=== PATIENT | female | born 1940 | race Caucasian/White ===

== ENCOUNTER → 2017-11-25 | Outpatient (CLI) | payer MEDICARE ==
[~2017-11-25] MED LIST: ASPI-555 PO; METO25TA6 PO; NITR0.4T SL; ROSU5TAB18 PO
== END | disposition home or self-care (01) ==
LOC: SHCH 13:27
PROVIDERS: ATTEND Internal Medicine Cardiovascular Disease
DX: I25.10 Atherosclerotic heart disease of native coronary artery without angina pectoris (principal); I10 Essential (primary) hypertension
CPT/HCPCS: 93306

== ENCOUNTER → 2017-11-26 | Outpatient (CLI) | payer MEDICARE ==
[~2017-11-26] MED LIST changes: +REGADENOSON 0.4 MG/5 ML PF SYG IVP SCH
== END | disposition home or self-care (01) ==
LOC: SHCH 07:59
PROVIDERS: ATTEND Internal Medicine Cardiovascular Disease
DX: I25.10 Atherosclerotic heart disease of native coronary artery without angina pectoris (principal); I10 Essential (primary) hypertension
CPT/HCPCS: 78452; 93017; 96374; A9500 ×2; J2785

== ENCOUNTER → 2019-06-22 | Outpatient (CLI) | payer MEDICARE ==
[~2019-06-22] MED LIST changes: +CALC-724 PO; +GLUC-252 PO; +HYDR500C2 PO; +MAGNESIUM PO; -NITR0.4T SL; -REGADENOSON 0.4 MG/5 ML PF SYG IVP SCH; -ROSU5TAB18 PO; +coq-10 PO; +fish oil PO
== END | disposition home or self-care (01) ==
LOC: RAH 07:34
PROVIDERS: ATTEND Physical Medicine & Rehabilitation
DX: S83.241A Other tear of medial meniscus, current injury, right knee, initial encounter (principal); M94.261 Chondromalacia, right knee; M17.11 Unilateral primary osteoarthritis, right knee; X58.XXXA Exposure to other specified factors, initial encounter; Y93.89 Activity, other specified; Y92.89 Other specified places as the place of occurrence of the external cause; Y99.8 Other external cause status
CPT/HCPCS: 73721

== ENCOUNTER → 2019-12-23 | Outpatient (CLI) | payer MEDICARE | END | disposition home or self-care (01) | LOC: RAH 11:13 | PROVIDERS: ATTEND Physical Medicine & Rehabilitation | DX: M84.351A Stress fracture, right femur, initial encounter for fracture (principal); M17.11 Unilateral primary osteoarthritis, right knee; M25.462 Effusion, left knee; M79.89 Other specified soft tissue disorders; M85.88 Other specified disorders of bone density and structure, other site; M11.261 Other chondrocalcinosis, right knee; X58.XXXA Exposure to other specified factors, initial encounter; Y93.89 Activity, other specified; Y92.89 Other specified places as the place of occurrence of the external cause; Y99.8 Other external cause status | CPT/HCPCS: 73562 ==

== ENCOUNTER → 2020-08-15 | Outpatient (CLI) | payer MEDICARE ==
[~2020-08-15] MED LIST changes: -ASPI-555 PO; +ASPI-556 PO; +CALC-1158 PO; -CALC-724 PO
== END | disposition home or self-care (01) ==
LOC: RAH 11:01
PROVIDERS: ATTEND Physical Medicine & Rehabilitation
DX: M43.16 Spondylolisthesis, lumbar region (principal); M54.16 Radiculopathy, lumbar region
CPT/HCPCS: 72110

== ENCOUNTER → 2022-06-02 | Outpatient (CLI) | payer MEDICARE | END | disposition home or self-care (01) | LOC: SHCH 08:31 | PROVIDERS: ATTEND Internal Medicine Cardiovascular Disease | DX: I08.0 Rheumatic disorders of both mitral and aortic valves (principal); I25.3 Aneurysm of heart | CPT/HCPCS: 93306 ==

== ENCOUNTER 2022-08-25 06:50 | Day surgery (SDC) | payer MEDICARE ==
[2022-08-21 09:35] LABS: BASOPHILS % (AUTO) 1.5 % (0.0-5.0); EOSINOPHILS % (AUTO) 4.3 % (0.0-8.0); HEMATOCRIT 51.9 % (36-48); LYMPHOCYTES % (AUTO) 23.5 % (21.0-51.0); MEAN CORPUSCULAR HEMOGLOBIN 29.2 pg (27.0-33.0); MEAN CORPUSCULAR HGB CONC 32.2 g/dL (32.0-36.0); MEAN CORPUSCULAR VOLUME 90.9 fL (79-99); MONOCYTES % (AUTO) 7.8 % (3.0-13.0); NEUTROPHILS % (AUTO) 62.2 % (40.0-77.0); PLATELET COUNT (AUTO) 542 K/uL (130-400); RED BLOOD CELL COUNT(AUTO) 5.71 MIL/uL (4.00-5.50); RED CELL DISTRIBUTION WIDTH 14.3 % (11.0-15.5); WHITE BLOOD COUNT (AUTO) 8.6 K/uL (4.8-10.8)
[2022-08-21 09:45] LABS: APPEARANCE,URINE CLEAR (CLEAR); BILIRUBIN,URINE NEGATIVE (NEGATIVE); COLOR,URINE YELLOW (YELLOW); GLUCOSE, URINE (UA) NEGATIVE (NEGATIVE); KETONES,URINE NEGATIVE (NEGATIVE); LEUKOCYTE ESTERASE ,URINE 250 Leu/uL (NEGATIVE); NITRATE,URINE NEGATIVE (NEGATIVE); OCCULT BLOOD,URINE NEGATIVE (NEGATIVE); PH,URINE 5.5 (5.0-8.0); PROTEIN,URINE NEGATIVE (NEGATIVE); UROBILINOGEN,URINE 0.2 mg/dL (0.2-1.0)
[2022-08-21 09:46] LABS: CREATININE 0.8 mg/dL (0.5-1.5); POTASSIUM 4.3 mmol/L (3.5-5.1)
[2022-08-21 09:47] LABS: INR 1.04 (0.85-1.15); PROTHROMBIN TIME 11.3 SEC (9.6-11.6)
[2022-08-21 09:49] LABS: PARTIAL THROMBOPLASTIN TIME 29.1 SEC (26.3-35.5)
[2022-08-21 10:01] LABS: BACTERIA,URINE RARE /HPF (None Seen); MUCUS,URINE RARE LPF (None Seen); OTHER CASTS, URINE 1 /LPF (None Seen); SQUAMOUS EPITHELIAL CELL,UR RARE /HPF (0-2)
[2022-08-21 10:02] LABS: B-TYPE NATRIURETIC PEPTIDE 78 pg/mL (0-100)
[2022-08-22 10:46] VITALS: BP 143/84
[2022-08-25] VITALS (11 sets, daily range): BP systolic 124–153; BP diastolic 74–93
[~2022-08-25 06:50] MED LIST changes: +0.9%NACL 1000ML 1,000 ML IV SCH; +ALEN70TA80 PO; -CALC-1158 PO; +CHOL2000 PO; +EZET10TA48 PO; -GLUC-252 PO; -MAGNESIUM PO; +NITR0.4T50 SL; +PREVAGEN PO; +ROSU5TAB12 PO; +SUPER B COMPLEX PO; -coq-10 PO; -fish oil PO
[2022-08-25] MEDS ORDERED: HEPARIN 10,000 UNIT/10ML (1,000 UNIT/ML) VIAL ONE (08:16)
[2022-08-25] MEDS ORDERED: LIDOCAINE HCL 1% 20 ML VIAL ONE (08:16)
[2022-08-25] MEDS ORDERED: SODIUM BICARB 50MEQ 50ML VIAL 50 ML ONE (08:16)
[2022-08-25] MEDS ORDERED: MEPERIDINE-PF 25 MG/ML SYG ONE ×2 (08:17→08:47)
[2022-08-25] MEDS ORDERED: MIDAZOLAM HCL 1 MG/ML 2ML VIAL ONE ×2 (08:17→08:47)
[2022-08-25] MEDS ORDERED: IOHEXOL-350 50ML VIAL IV ONE (08:17)
[2022-08-25] MEDS ORDERED: IOHEXOL 350 MG/ML 100ML INFUS..BTL IV ONE (08:17)
[2022-08-25] MEDS ORDERED: NITROGLYCERIN 50MG VIAL ONE (08:21)
[2022-08-25] MEDS ORDERED: ASPIRIN 325MG EC TAB PO ONE (09:44)
[2022-08-25] MEDS ORDERED: CLOPIDOGREL 300MG TAB ONE (09:44)
[2022-08-25] MEDS ORDERED: 0.9%NACL 1000ML 1,000 ML IV SCH (10:00)
== END 2022-08-25 15:30 | disposition home or self-care (01) ==
LOC: DAH 06:50
PROVIDERS: ATTEND Internal Medicine Cardiovascular Disease
DX: I25.119 Atherosclerotic heart disease of native coronary artery with unspecified angina pectoris (principal); I25.719 Atherosclerosis of autologous vein coronary artery bypass graft(s) with unspecified angina pectoris; I25.82 Chronic total occlusion of coronary artery; I50.42 Chronic combined systolic (congestive) and diastolic (congestive) heart failure; Z79.01 Long term (current) use of anticoagulants; Z79.899 Other long term (current) drug therapy; Z79.82 Long term (current) use of aspirin; Z98.890 Other specified postprocedural states
CPT/HCPCS: 80048; 83880; 85025; 85610; 85730; 87088; 81001; 36415; 71045; 93005; 93459; C9600; C1769 ×3; C1887; C1894; C1760; C1874; J7030; J3490 ×2; J1644 ×2; J2250 ×2; J2175 ×2; Q9967; A4215; A4222; A4221; A4663; A4216; A4606; Q9965 ×2; A4223 ×3; 96360; 96361; 99156; 99157

== ENCOUNTER 2022-10-22 14:58 | Emergency (ER) | payer MEDICARE ==
[~2022-10-22] VITALS: Ht 162.6 cm; Wt 63.5 kg
[~2022-10-22 14:58] MED LIST changes: -0.9%NACL 1000ML 1,000 ML IV SCH
[2022-10-22 15:11] VITALS: BP 150/96
[2022-10-22] MEDS ORDERED: ACETAMINOPHEN 500 MG TABLET PO ONE (17:00)
[2022-10-22] MEDS ORDERED: IBUP-2070 PO (17:52)
== END 2022-10-22 18:10 | disposition home or self-care (01) ==
LOC: EDH 14:58
DX: M71.22 Synovial cyst of popliteal space [Baker], left knee (principal); Z90.49 Acquired absence of other specified parts of digestive tract; Z90.710 Acquired absence of both cervix and uterus; Z95.1 Presence of aortocoronary bypass graft; Z79.82 Long term (current) use of aspirin; Z79.899 Other long term (current) drug therapy; Z88.5 Allergy status to narcotic agent
CPT/HCPCS: 73562; 93971

== ENCOUNTER → 2023-02-02 | Outpatient (CLI) | payer MEDICARE ==
[~2023-02-02] MED LIST changes: +IBUP-2070 PO
[2023-02-02 12:40] LABS: INR 0.97 (0.85-1.15); PROTHROMBIN TIME 10.6 SEC (9.6-11.6)
[2023-02-02 12:42] LABS: PARTIAL THROMBOPLASTIN TIME 28.7 SEC (26.3-35.5)
[2023-02-02 12:48] LABS: BASOPHILS % (AUTO) 1.3 % (0.0-5.0); EOSINOPHILS % (AUTO) 2.8 % (0.0-8.0); HEMATOCRIT 44.6 % (36-48); LYMPHOCYTES % (AUTO) 23.6 % (21.0-51.0); MEAN CORPUSCULAR HEMOGLOBIN 34.9 pg (27.0-33.0); MEAN CORPUSCULAR VOLUME 105.9 fL (79-99); MONOCYTES % (AUTO) 7.4 % (3.0-13.0); NEUTROPHILS % (AUTO) 64.4 % (40.0-77.0); PLATELET COUNT (AUTO) 410 K/uL (130-400); RED BLOOD CELL COUNT(AUTO) 4.21 MIL/uL (4.00-5.50); RED CELL DISTRIBUTION WIDTH 12.7 % (11.0-15.5); WHITE BLOOD COUNT (AUTO) 6.1 K/uL (4.8-10.8)
[2023-02-02 12:59] LABS: HEMOGLOBIN A1C 5.7 % (4.0-6.0)
[2023-02-02 13:14] LABS: CREATININE 0.8 mg/dL (0.5-1.5); MAGNESIUM 1.8 mg/dL (1.80-2.40); POTASSIUM 3.7 mmol/L (3.5-5.1); T4 (THYROXINE) 8.8 ug/dL (4.7-13.3); THYROID STIMULATING HORMONE 1.75 uIU/mL (0.36-3.74); TOTAL PROTEIN, SERUM 7.6 g/dL (6.0-8.3)
== END | disposition home or self-care (01) ==
LOC: LAB 11:17
PROVIDERS: ATTEND Internal Medicine Cardiovascular Disease
DX: I25.10 Atherosclerotic heart disease of native coronary artery without angina pectoris (principal); E78.5 Hyperlipidemia, unspecified; Z79.899 Other long term (current) drug therapy; Z95.5 Presence of coronary angioplasty implant and graft; Z95.1 Presence of aortocoronary bypass graft; Z79.82 Long term (current) use of aspirin; Z86.2 Personal history of diseases of the blood and blood-forming organs and certain disorders involving the immune mechanism
CPT/HCPCS: 36415; 80053; 80061; 82607; 82652; 83036; 83735; 84436; 84443; 84479; 85025; 85610; 85730

== ENCOUNTER → 2023-06-02 | Outpatient (CLI) | payer MEDICARE ==
[2023-06-02 12:44] LABS: CHOLESTEROL 129 mg/dL (<200); HDL CHOLESTEROL 63 mg/dL (35-85); LDL DIRECT 50 mg/dL (0-99); TRIGLYCERIDES 61 mg/dL (30-200)
== END | disposition home or self-care (01) ==
LOC: LAB 08:21
PROVIDERS: ATTEND Internal Medicine Cardiovascular Disease
DX: E78.5 Hyperlipidemia, unspecified (principal)
CPT/HCPCS: 36415; 80061

== ENCOUNTER 2024-03-17 10:30 | Emergency (ER) | payer MEDICARE ==
[~2024-03-17] VITALS: Ht 162.6 cm; Wt 61.2 kg
[~2024-03-17 10:30] MED LIST changes: -ROSU5TAB12 PO; +ROSU5TAB43 PO
[2024-03-17 11:02] VITALS: BP 127/86; PULSE 92; RESP 18; O2SAT 97
[2024-03-17] MEDS: DEXAMETHASONE SOD PHOSPHATE 4 MG/ML 1ML VIAL IM ONE (12:01)
[2024-03-17] MEDS: ACETAMINOPHEN 500 MG TABLET PO ONE (12:01)
[2024-03-17] MEDS ORDERED: METH4TAB3 PO (12:41)
== END 2024-03-17 13:15 | disposition home or self-care (01) ==
LOC: EDH 10:30
DX: M17.12 Unilateral primary osteoarthritis, left knee (principal); Z79.82 Long term (current) use of aspirin; Z79.899 Other long term (current) drug therapy; Z98.890 Other specified postprocedural states; Z90.710 Acquired absence of both cervix and uterus; Z88.8 Allergy status to other drugs, medicaments and biological substances
CPT/HCPCS: 99283; 73562; 96372; J1100

== ENCOUNTER → 2024-10-10 | Outpatient (CLI) | payer MEDICARE ==
[~2024-10-10] MED LIST changes: +METH4TAB3 PO; -ROSU5TAB43 PO; +ROSU5TAB51 PO
[2024-10-10 12:46] LABS: CREATININE 0.9 mg/dL (0.5-1.0); POTASSIUM 4.7 mmol/L (3.5-5.1)
== END | disposition home or self-care (01) ==
LOC: LAB 11:04
PROVIDERS: ATTEND Internal Medicine Cardiovascular Disease
DX: I10 Essential (primary) hypertension (principal); E78.5 Hyperlipidemia, unspecified
CPT/HCPCS: 36415; 80048; 80061

== ENCOUNTER → 2024-10-21 | Outpatient (CLI) | payer MEDICARE ==
[~2024-10-21] MED LIST changes: +IOHEXOL 350 MG/ML 100ML INFUS..BTL IV ONE
--- NOTE | 2024-10-21 12:05 | HMCIMG ---
CT ABDOMEN/PELVIS W/CONTRAST REASON: ANEURYSM OF OTHER SPECIFIED ARTERIES COMPARISON: 05/03/2018 TECHNIQUE: Images are obtained from lung bases to symphysis pubis following IV contrast, 100 cc Omnipaque 350. FINDINGS: Lung bases are clear. There are no focal liver lesions. There are normal-appearing kidneys.. Spleen and pancreas appear unremarkable. There has been a previous cholecystectomy. Bowel loops appear unremarkable. This includes normal appearance of the appendix There is no evidence of free fluid or intraperitoneal air. There are no focal fluid collections. Aorta and retroperitoneum appear normal as do pelvic soft tissue structures. Aorta, common and external iliac arteries and common femoral arteries appear unremarkable, no evidence of aneurysm. The anterior abdominal wall is intact. Osseous structures appear unremarkable. IMPRESSION: 1. No acute finding in the abdomen or pelvis. 2. No evidence of aneurysm. CT was performed with one or more following dose reduction techniques: automated exposure control, adjustment of the mA and kv according to patient's size, or use of a iterative reconstruction technique.
== END | disposition home or self-care (01) ==
LOC: RAH 08:11
PROVIDERS: ATTEND Internal Medicine Cardiovascular Disease
DX: I72.8 Aneurysm of other specified arteries (principal); Z90.49 Acquired absence of other specified parts of digestive tract
CPT/HCPCS: 74177; Q9967

== ENCOUNTER 2025-06-15 15:53 | Emergency (ER) | payer MEDICARE ==
[~2025-06-15] VITALS: Ht 162.6 cm; Wt 61.7 kg
[~2025-06-15 15:53] MED LIST changes: -EZET10TA48 PO; +EZET10TA80 PO; +IBUP-1492 PO; -IBUP-2070 PO; -IOHEXOL 350 MG/ML 100ML INFUS..BTL IV ONE
--- NOTE | 2025-06-15 16:01 | ERN ---
ED Note History of Present Illness Stated Complaint: ABDOMINAL PAIN Chief Complaint: Abdominal Pain Time Seen by MD: 15:54 Dictation: PATIENT IS AN 84-YEAR-OLD FEMALE COMING IN WITH THE TODAY WITH COMPLAINTS OF ACUTE ONSET OF LEFT FLANK PAIN THAT RADIATES TO HER LEFT LOWER QUADRANT WITH NAUSEA VOMITING ONSET 4 HOURS PRIOR TO ARRIVAL. SHE STATES THE PAIN STARTED IN HER LEFT FLANK AND THEN RADIATED AROUND. NOW IT IS MORE TO THE LEFT LOWER QUADRANT. SHE DENIES FEVER CHILLS. NEGATIVE CVAT IN TRIAGE. DENIES ANY HISTORY OF UROLITHIASIS/DIVERTICULITIS UTI. Allergies: Coded Allergies: hydrocodone (Unverified Allergy, Unknown, 10/07/16) Home Meds Active Scripts Methylprednisolone (Medrol) 4 Mg Tab.ds.pk, 4 MG PO AD, #1 UNIT Prov:SIOBHAN WALSH ASSEMBLER BODY 03/17/24 Ibuprofen (Ibuprofen) 600 Mg Tablet, 600 MG PO Q6H PRN for PAIN, #40 TAB Prov:KAUSHIK MALCOLM V PRIMARY CARE PHYSICIAN 10/22/22 Reported Medications Nitroglycerin (Nitroglycerin) 0.4 Mg Tab.subl, 0.4 MG SL AD PRN for CHEST PAIN, TAB.SL 08/22/22 Alendronate Sodium (Alendronate Sodium) 70 Mg Tablet, 70 MG PO QWEEK, TAB 08/22/22 [Prevagen] No Conflict Check, 10 MG PO DAILY 08/22/22 [Super B Complex] No Conflict Check, 1 TAB PO DAILY 08/22/22 Cholecalciferol (Vitamin D3) (Vitamin D3) 50 Mcg Capsule, 50 MCG PO DAILY, CAP 08/22/22 Rosuvastatin Calcium (Rosuvastatin Calcium) 5 Mg Tablet, 5 MG PO DAILY, TAB 08/22/22 Ezetimibe (Ezetimibe) 10 Mg Tablet, 10 MG PO DAILY, TAB 08/22/22 Metoprolol Tartrate (Metoprolol Tartrate) 25 Mg Tablet, 0.5 MG PO DAILY, TAB 06/09/18 Hydroxyurea (Hydroxyurea) 500 Mg Capsule, 500 MG PO DAILY, CAP 06/09/18 Aspirin (Aspir 81) 81 Mg Tablet.dr, 81 MG PO DAILY, TAB 10/07/16 Past Medical History Past Medical History: Heart Disease, Hypertension Additional Past Medical Hx: HX OF LEFT LEG MELANOMA Surgical History: CABG Surgical History Other: L LEG MELANOMA REMOVAL History: Not Applicable RN Note Reviewed/Agreed w/PFSH: Yes Review of System Dictation CONSTITUTIONAL: NEGATIVE EXCEPT FOR HPI HEAD/FACE: NEGATIVE EXCEPT FOR HPI EENT: NEGATIVE EXCEPT FOR HPI RESPIRATORY: NEGATIVE EXCEPT FOR HPI GASTROINTESTINAL/ABDOMINAL: NEGATIVE EXCEPT FOR HPI LEFT FLANK PAIN THAT RADIATES TO LEFT LOWER QUADRANT WITH NAUSEA VOMITING GENITOURINARY: NEGATIVE EXCEPT FOR HPI MUSCULOSKELETAL: NEGATIVE EXCEPT FOR HPI INTEGUMENTARY: NEGATIVE EXCEPT FOR HPI NEUROLOGICAL/PSYCH: NEGATIVE EXCEPT FOR HPI HEMATOLOGIC/LYMPHATIC: NEGATIVE EXCEPT FOR HPI ALL SYSTEMS NEGATIVE, EXCEPT NOTED ABOVE. 13 POINT REVIEW OF SYSTEMS ASSESSED AND ALL NEGATIVE EXCEPT FOR ABOVE. Initial Vital Sign VS Vital Signs Date Time Temp Pulse Resp B/P (MAP) Pulse Ox O2 Delivery O2 Flow Rate FiO2 06/15/25 15:54 98.2 64 16 133/85 100 Room Air 0 06/15/25 15:57 21 Physical Exam Dictation VITAL SIGNS REVIEWED GENERAL APPEARANCE: ALERT, ORIENTED X 3, MODERATE ACUTE DISTRESS, WELL DEVELOPED, NOURISHED. HEAD AND FACE: NON-TRAUMATIC. EYES: PERRL, PINK CONJUNCTIVAS, EYELID NO TRAUMA, ANTERIOR CHAMBER WITH ARCUS SENILIS. EARS: PINNAS INTACT AND NO SIGNS OF TRAUMA OR ERYTHEMA EAR CANALS CLEAR AND NO DISCHARGE TM NO ERYTHEMA NOSE: NO DISCHARGE, NO BLEEDING. OROPHARYNX: MOUTH NORMAL, TONGUE PINK, PHARYNX CLEAR,NO ERYTHEMA, TONSILS NO EXUDATES, NO ABSCESSES NOTED, MUCOUS MEMBRANE MOIST NECK: SUPPLE, NON-TENDER, NO THYROMEGALY, NO MASSES, NO JVD, NO BRUITS BREAST:DEFERRED CHEST:NO TENDERNESS, NO CREPITUS, NO PARADOXICAL MOVEMENT, NO RETRACTIONS LUNGS:CLEAR, WELL-VENTILATED, SYMMETRIC, NO RALES, NO WHEEZING, NO RHONCHI, NO STRIDOR, GOOD BREATH SOUNDS BILATERALLY HEART: REGULAR RATE, REGULAR RHYTHM, NO MURMUR, NO GALLOPS VASCULAR: NO PERIPHERAL EDEMA, ABDOMEN: SOFT, POSITIVE BOWEL SOUNDS, NONDISTENDED, NO GUARDING, MILD LEFT LOWER QUADRANT TENDERNESS, NO REBOUND, NO MASSES NO HEPATOMEGALY, NO SPLENOMEGALY, NO KEE'S SIGN, NO HERNIAS. NEGATIVE CVAT RECTAL: DEFERRED GENITAL: DEFERRED NEUROLOGICAL: NORMAL SPEECH, MOTOR FUNCTION INTACT, SENSORY FUNCTION INTACT MUSCULOSKELETAL: NECK NONTENDER, FULL RANGE OF MOTION, BACK NONTENDER, FULL RANGE OF MOTION, EXTREMITIES: NONTENDER, FULL RANGE OF MOTION SKIN: COLOR PINK, DRY, NO TURGOR, NO RASH, NO LACERATIONS, NO ABRASIONS, NO CONTUSIONS. LYMPHATIC: DEFERRED Results (Laboratory/Radiology) Laboratory/Radiology Laboratory Tests Test 06/15/25 16:08 06/15/25 17:50 White Blood Count 9.5 K/uL (4.8-10.8) Red Blood Count 4.61 MIL/uL (4.00-5.50) Hemoglobin 15.0 g/dL (12.0-16.0) Hematocrit 46.0 % (36-48) Mean Corpuscular Volume 99.8 fL (79-99) H Mean Corpuscular Hemoglobin 32.5 pg (27.0-33.0) Mean Corpuscular Hemoglobin Concent 32.6 g/dL (32.0-36.0) Red Cell Distribution Width 14.8 % (11.0-15.5) Platelet Count 405 K/uL (130-400) H Mean Platelet Volume 10.2 fL (7.5-10.5) Immature Granulocyte % (Auto) 0.4 % (0-1) Neutrophils (%) (Auto) 69.5 % (40.0-77.0) Lymphocytes (%) (Auto) 20.5 % (21.0-51.0) L Monocytes (%) (Auto) 7.5 % (3.0-13.0) Eosinophils (%) (Auto) 1.3 % (0.0-8.0) Basophils (%) (Auto) 0.8 % (0.0-5.0) Neutrophils # (Auto) 6.6 K/uL (1.8-7.7) Lymphocytes # (Auto) 1.9 K/uL (1.0-4.8) Monocytes # (Auto) 0.7 K/uL (0.1-1.0) Eosinophils # (Auto) 0.12 K/uL (0.00-0.70) Basophils # (Auto) 0.08 K/uL (0.00-0.20) Absolute Immature Granulocyte (auto 0.04 K/uL (0-1) Nucleated Red Blood Cells 0.0 % (0.0-0.19) Sodium Level 140 mmol/L (136-145) Potassium Level 5.1 mmol/L (3.5-5.1) Chloride Level 103 mmol/L (101-111) Carbon Dioxide Level 30 mmol/L (21-32) Blood Urea Nitrogen 19 mg/dL (7-18) H Creatinine 1.0 mg/dL (0.5-1.0) Glomerular Filtration Rate Calc 56 mL/min (>90) Random Glucose 115 mg/dL (70-105) H Total Calcium 9.3 mg/dL (8.5-10.1) Troponin I High Sensitivity 7 ng/L (4-50) Lipase 29 U/L (16-77) Urine Color LIGHT-YELLOW (YELLOW) Urine Appearance CLEAR (CLEAR) Urine pH 6.0 (5.0-8.0) Urine Specific [place] 1.010 (1.001-1.031) Urine Protein NEGATIVE mg/dL (NEGATIVE) Urine Glucose (UA) NEGATIVE mg/dL (NEGATIVE) Urine Ketones NEGATIVE mg/dL (NEGATIVE) Urine Occult Blood LARGE (NEGATIVE) H Urine Nitrate NEGATIVE (NEGATIVE) Urine Bilirubin NEGATIVE mg/dL (NEGATIVE) Urine Urobilinogen 0.2 mg/dL (0.2-1.0) Urine Leukocyte Esterase 25 Levi/uL (NEGATIVE) H Urine RBC 51-100 /HPF (0-1) H Urine WBC 2-5 /HPF (0-1) H Urine Squamous Epithelial Cells RARE /HPF (0-2) Urine Bacteria RARE /HPF (None Seen) The lung bases appear clear. No pleural effusions are seen. LIVER: Unremarkable. GALLBLADDER AND BILE DUCTS: The gallbladder is surgically absent. . No biliary ductal dilatation is evident. PANCREAS: Unremarkable. SPLEEN: Unremarkable. There is a 2.1 cm rim calcified left splenic artery chronic appearing pseudoaneurysm versus aneurysm unchanged in size ADRENAL GLANDS: Unremarkable. KIDNEYS, URETERS, AND BLADDER: The kidneys appear within normal limits. There is no hydronephrosis or hydroureter. No urinary calculi are seen. Sigmoid colon diverticulosis without CT evidence of acute diverticulitis. No evidence of bowel obstruction. No evidence suggesting enteritis or colitis. APPENDIX: No evidence of acute appendicitis on CT examination. PERITONEUM: No free fluid. No free air. LYMPH NODES: No lymphadenopathy is evident. REPRODUCTIVE: The uterus is absent. VASCULATURE: No evidence of abdominal aortic aneurysm. BONES: No aggressive appearing osseous lesion. No acute osseous pathology evident. 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 L4-L5 spinal canal narrowing and neural foraminal narrowing not significantly changed. No acute osseous abnormality. IMPRESSION: 1. No acute intraabdominal or pelvic pathology. 2. 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 3. Sigmoid colon diverticulosis without evidence of acute diverticulitis. 4. 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 5. Status post cholecystectomy and hysterectomy. /[facility] Labs Reviewed?: Yes EKG Comment: EKG sinus bradycardia/heart rate 54/NH interval 264 millisecond/left fascicular block ED Course ED Course Orders Procedure Category Date Status Time Cbc With Differential LAB 06/15/25 Complete 15:58 Troponin I High LAB 06/15/25 Complete Sensitivity 15:58 Urinalysis Profile LAB 06/15/25 Complete 15:58 12 Lead Ekg Tracing- EKG 06/15/25 Complete Technical 15:58 0.9%Nacl 1000ml (Ns PHA 06/15/25 Complete 1000ml) 16:00 Ketorolac PHA 06/15/25 Complete Tromethamine 15mg/Ml 16:00 Ondansetron 4mg Inj PHA 06/15/25 Complete (Zofran 4mg Inj) 16:00 Ct Abdomen/Pelvis W/O CT 06/15/25 Resulted Contrast 15:58 Lipase LAB 06/15/25 Complete 15:58 Basic Metabolic Panel LAB 06/15/25 Complete 15:58 Current Medications Medications (Trade) Dose Ordered Sig/Vincenzo Route PRN Reason Start Time Stop Time Status Last Admin Dose Admin Ketorolac Tromethamine (toRADol) 15 mg ONCE ONCE IV 06/15/25 16:00 06/15/25 16:03 DC 06/15/25 17:02 Ondansetron HCl (zoFRAN 4MG INJ) 4 mg ONCE ONCE IVP 06/15/25 16:00 06/15/25 16:03 DC 06/15/25 17:02 Sodium Chloride 1,000 ml @ 0 mls/hr ONCE ONCE IV 06/15/25 16:00 06/15/25 16:03 DC 06/15/25 17:02 Vital Signs Date Time Temp Pulse Resp B/P (MAP) Pulse Ox O2 Delivery O2 Flow Rate FiO2 06/15/25 18:22 98.1 60 13 136/67 97 Room Air* 0 06/15/25 16:59 97.7 68 12 140/74 97 Room Air* 0 21 06/15/25 15:57 98.2 64 16 133/85 100 Room Air* 0 21 06/15/25 15:54 98.2 64 16 133/85 100 Room Air 0 1830/spoke to patient at length regarding clinical findings. She is aware that she had a 2 cm calcified splenic aneurysm. She is also aware that there is no stone traveling and mild diverticulosis only. She has a hematuria without infection she wishes to be discharged home because she is pain-free and would like to go home with the . All questions answered instructed her to follow up with her primary care doctor HEART Score Response (Comments) Value EKG: Repolarization changes 1 Age: > 65yrs (+2) 2 Risk Factors: 1-2 risk factors (+1) 1 Initial Troponin: Normal limit (0) 0 Total 4 Medical Decision Making MDM MDM: Differential diagnosis: Urolithiasis/biliary colic/pyelonephritis/diverticulitis/UTI/electrolyte imbalance/dehydration EKG Rationale: Tests considered and ordered secondary to shared decision making include: Radiology/labs/EKG Previous outside records reviewed: Old ER visits. Risk of complication and/or morbidity or mortality of patient management: None Medications-Per medication reconciliation Need for hospitalization: Patient does not meet criteria for hospitalization. No Need for emergency major/minor surgery: No There are no social concerns with this patient. Prescription drug management ibuprofen Prescriptions will include symptomatic care Patient's prior external medical records from other ER visits were reviewed by me as indicated. Prior testing and results from previous visits were reviewed. Prior tests were taken into account with medical decision making and resource utilization, independent historian/historians were used to obtain complete medical history. I independently interpreted the test that were performed, results were reviewed by me and considered findings on radiology if ordered. Medical management and examination interpretation discussions were had by me with other qualified healthcare professionals as indicated for the patient's care. DX & DISP Disposition: Discharge Departure Impression: Primary Impression: Microscopic hematuria Additional Impression: Splenic artery aneurysm Condition: Stable Scripts Ibuprofen (Ibuprofen) 600 Mg Tablet 600 MG PO Q6H PRN for PAIN, #30 TAB Prov: SIOBHAN WALSH ASSEMBLER BODY 06/15/25 Additional Instructions: Follow-up with primary care provider in 1 to 2 days. Take medications as directed here in the emergency room. Okay to continue home medications unless otherwise discussed during your visit in the emergency room today. Return to your nearest emergency room if symptoms worsen or if there is no improvement. Call 911 if you need immediate assistance. Take Tylenol or Motrin [id number] as needed and if no contraindications are present. Increase oral hydration. A wound culture or urine culture was ordered here in the emergency room department please follow-up with primary care provider and advise them to get repeat ports from our facility. If you had any Abdullahi wrap/splints that were applied here, please do not remove them until you see your primary care or specialty. Take ibuprofen as needed with food for pain. Increase your water intake. Follow up with your primary care doctor next 1-2 days. Referrals: LENIN GERBER MD (PCP) Time of Disposition: 18:35 I have reviewed the case, and I agree with SIOBHAN WALSH NP Jun 15, 2025 16:01
[2025-06-15 16:16] LABS: IMMATURE GRANULOCYTE ABSOLUTE 0.04 K/uL (0-1); NUCLEATED RED BLOOD CELLS 0.0 % (0.0-0.19); PLATELET COUNT (AUTO) 405 K/uL (130-400); RED BLOOD CELL COUNT(AUTO) 4.61 MIL/uL (4.00-5.50); RED CELL DISTRIBUTION WIDTH 14.8 % (11.0-15.5); WHITE BLOOD COUNT (AUTO) 9.5 K/uL (4.8-10.8)
[2025-06-15 16:24] LABS: CREATININE 1.0 mg/dL (0.5-1.0); GLOMERULAR FILTR. RATE CALC 56.0 mL/min (>90); GLUCOSE,RANDOM 115.0 mg/dL (70-105); SODIUM SERUM 140.0 mmol/L (136-145); UREA NITROGEN, BLOOD 19.0 mg/dL (7-18)
--- NOTE | 2025-06-15 16:40 | EKG ---
[facility] Test Date: 2025-06-15 Test Time: 16:36:34 Pat Name: NEGRA VAZQUEZ Department: ED Room: Gender: F Surgical Supplies Sterilizer: [id number] : 1940 Requested By: SIOBHAN WALSH Order Number: [id number] Reading MD: Aura Hayward Measurements Intervals [place] Rate: 54 P: 68 PA: 264 QRS: -41 QRSD: 98 T: 44 QT: 445 QTc: 420 Interpretive Statements Sinus rhythm Prolonged PA interval Left anterior fascicular block Compared to ECG 08/21/2022 08:06:49 Left anterior fascicular block now present Left-axis deviation no longer present Electronically Signed On 06-19-2025 14:53:09 CDT by Aura Hayward Please click the below link to view image of tracing.
[2025-06-15] MEDS: 0.9%NACL 1000ML 1,000 ML IV ONE (17:02)
--- NOTE | 2025-06-15 18:04 | HMCIMG ---
EXAM: CT Abdomen and Pelvis Without IV contrast CLINICAL HISTORY: LEFT FLANK PAIN RADIATING TO LEFT LOWER QUADRANT NAUSEA VOMITING TECHNIQUE: Axial computed tomography images of the abdomen and pelvis without intravenous contrast. CONTRAST: No IV contrast. COMPARISON: None provided. CT abdomen and pelvis with contrast 10/21/2024 FINDINGS: LUNG BASES: The lung bases appear clear. No pleural effusions are seen. LIVER: Unremarkable. GALLBLADDER AND BILE DUCTS: The gallbladder is surgically absent. . No biliary ductal dilatation is evident. PANCREAS: Unremarkable. SPLEEN: Unremarkable. There is a 2.1 cm rim calcified left splenic artery chronic appearing pseudoaneurysm versus aneurysm unchanged in size ADRENAL GLANDS: Unremarkable. KIDNEYS, URETERS, AND BLADDER: The kidneys appear within normal limits. There is no hydronephrosis or hydroureter. No urinary calculi are seen. Sigmoid colon diverticulosis without CT evidence of acute diverticulitis. No evidence of bowel obstruction. No evidence suggesting enteritis or colitis. APPENDIX: No evidence of acute appendicitis on CT examination. PERITONEUM: No free fluid. No free air. LYMPH NODES: No lymphadenopathy is evident. REPRODUCTIVE: The uterus is absent. VASCULATURE: No evidence of abdominal aortic aneurysm. BONES: No aggressive appearing osseous lesion. No acute osseous pathology evident. 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 L4-L5 spinal canal narrowing and neural foraminal narrowing not significantly changed. No acute osseous abnormality. IMPRESSION: 1. No acute intraabdominal or pelvic pathology. 2. 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 3. Sigmoid colon diverticulosis without evidence of acute diverticulitis. 4. 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 5. Status post cholecystectomy and hysterectomy. /[place]
[2025-06-15 18:11] LABS: APPEARANCE,URINE CLEAR (CLEAR); GLUCOSE, URINE (UA) NEGATIVE (NEGATIVE); LEUKOCYTE ESTERASE ,URINE 25 Leu/uL (NEGATIVE); NITRATE,URINE NEGATIVE (NEGATIVE); OCCULT BLOOD,URINE LARGE (NEGATIVE)
[2025-06-15 18:12] LABS: ADD UA MICROSCOPIC YES
[2025-06-15 18:13] LABS: SQUAMOUS EPITHELIAL CELL,UR RARE /HPF (0-2)
[2025-06-15] MEDS ORDERED: IBUP-1492 PO (18:36)
[2025-06-15 19:03] VITALS: BP 141/72; PULSE 53; RESP 12; TEMP 97.8; O2SAT 97
--- NOTE | 2025-06-15 19:03 | NUR ---
DC PATIENT WAS DC'D BY SIOBHAN WALSH COREMAKER HELPER TODAY, I DC'D PATIENTS IV WITH CATH STILL INTACT AND APPLIED 2X2 GAUZE WITH COBAN, I EXPLAINED TO PATIENT TO FOLLOW UP WITH PCP, PROVIDED INFO BASED ON DIAGNOSIS, EXPLAINED NEW PRESCRIPTIONS AND HOW TO TAKE THEM, AND ANSWERED ANY FOLLOW UP QUESTIONS PATIENT AMBULATED OUT OF ED, NO COMPLICATIONS
== END 2025-06-15 19:01 | disposition home or self-care (01) ==
LOC: EDH 15:53
DX: R31.29 Other microscopic hematuria (principal); I72.8 Aneurysm of other specified arteries; I11.9 Hypertensive heart disease without heart failure; Z79.64 Long term (current) use of myelosuppressive agent; Z79.82 Long term (current) use of aspirin; Z79.899 Other long term (current) drug therapy; Z85.820 Personal history of malignant melanoma of skin; Z88.5 Allergy status to narcotic agent; Z90.49 Acquired absence of other specified parts of digestive tract; Z90.710 Acquired absence of both cervix and uterus; Z95.1 Presence of aortocoronary bypass graft
CPT/HCPCS: 99285; 74176; 96374; 96361; 96375; 84484; 80048; 83690; 85025; 81001; 36415; 93005; J1885; J7030; J2405